=== PATIENT | male | born 1985 | race Caucasian/White ===

== ENCOUNTER 2016-04-18 04:48 | Emergency (ER) | payer MEDICAID ==
[~2016-04-18] VITALS: Ht 172.7 cm; Wt 87.0 kg
[~2016-04-18 04:48] MED LIST: ACET500T98
[2016-04-18 05:07] VITALS: Ht 172.7 cm; Wt 87.0 kg
[2016-04-18] MEDS ORDERED: ACETAMINOPHEN 500 MG TAB PO STA (06:21)
[2016-04-18] MEDS ORDERED: ONDANSETRON 4 MG INJ IV STA (06:21)
[2016-04-18] MEDS ORDERED: morphine 4 MG/ML VIAL IV STA (06:21)
--- NOTE | 2016-04-18 06:28 | ERD ---
ER Documentation Chief Complaint Date/Time DATE: 04/18/16 TIME: 06:26 Chief Complaint low back pain x 1 week, fever x days HPI 31-year-old male otherwise healthy comes in with right-sided flank, right mid abdominal pain that started a week ago followed by fever for the past 2 days. He points to his right mid abdomen and anterior portion stating that if he seemed to feel swollen. He states that the pain has gradually become worse, described as achy constant pain. He began noticing a fever for the past 2 days , he tried taking Naprosyn prior to coming in. He denies any fevers, chills, nausea, vomiting or diarrhea. Patient denies dysuria, urgency or frequency. ROS All systems reviewed and are negative except as per history of present illness. Medications Home Meds Active Scripts Metronidazole* (Flagyl*) 500 Mg Tablet, 500 MG PO TID for 7 Days, TAB Prov:DALLAS FRANCO PA-C 04/18/16 Ciprofloxacin Hcl* (Ciprofloxacin Hcl*) 500 Mg Tablet, 500 MG PO BID for 7 Days , TAB Prov:DALLAS FRANCO PA-C 04/18/16 Reported Medications Acetaminophen (Tylenol) 500 Mg Tab 03/25/10 Allergies Allergies: Coded Allergies: No Known Drug Allergies (Verified Allergy, Mild, 04/18/16) PMhx/Soc History of Surgery: No Anesthesia Reaction: No Hx Neurological Disorder: No Hx Respiratory Disorders: No Hx Cardiac Disorders: No Hx Psychiatric Problems: Yes (DEPRESSION) Hx Miscellaneous Medical Probl: No Hx Alcohol Use: No Hx Substance Use: No Hx Tobacco Use: No Physical Exam Vitals Vital Signs Date Time Temp Pulse Resp B/P Pulse Ox O2 Delivery O2 Flow Rate FiO2 04/18/16 05:07 100.5 91 20 112/66 97 Physical Exam General: Well-developed, well-nourished. The patient appears in no acute distress. HEENT: Head is normocephalic, atraumatic. No scleral icterus. Pupils are equal , round, and reactive. Oral mucous membranes are moist. No pharyngeal erythema. Neck: Supple. Nontender. Lungs: Clear to auscultation. Normal air movement. Heart: Regular rate and rhythm. S1 and S2 are normal. No murmurs, gallops, or rubs. Back: No midline tenderness, no rashes. No CVA tenderness. Abdomen: Soft, right mid abdomen on the lateral aspect is tender, no McBurney's tenderness negative Ayala sign, no masses or hepatosplenomegaly nondistended. Bowel sounds are normoactive. Extremities: No clubbing or cyanosis. Normal pulses. Moving extremities x 4. No weakness. Neurologic: Alert and oriented 3. No focal deficits. Skin: Normal turgor. No rash or lesions. Result Diagram: 04/18/16 0640 04/18/16 0640 Results 24 hrs Laboratory Tests Test 04/18/16 06:40 Alanine Aminotransferase (ALT/SGPT) 23IU/L Albumin 3.8g/dl Albumin/Globulin Ratio 1.35 Alkaline Phosphatase 70IU/L Anion Gap 16 Aspartate Amino Transf (AST/SGOT) 22IU/L Basophils # 0.010^3/ul Basophils % 0.4% Blood Urea Nitrogen 11mg/dl Calcium Level 8.9mg/dl Carbon Dioxide Level 26mmol/L Chloride Level 105mmol/L Creatinine 0.77mg/dl Direct Bilirubin 0.00mg/dl Eosinophils # 0.110^3/ul Eosinophils % 0.8% Globulin 2.80g/dl Glucose Level 100mg/dl Hematocrit 38.0% Hemoglobin 12.9g/dl Indirect Bilirubin 1.1mg/dl Lipase 49U/L Lymphocytes # 1.210^3/ul Lymphocytes % 12.0% Mean Corpuscular Hemoglobin 30.7pg Mean Corpuscular Hemoglobin Concent 33.9g/dl Mean Corpuscular Volume 90.5fl Mean Platelet Volume 10.4fl Monocytes # 1.210^3/ul Monocytes % 12.0% Neutrophils # 7.210^3/ul Neutrophils % 74.5% Nucleated Red Blood Cells # 0.010^3/ul Nucleated Red Blood Cells % 0.0/100WBC Platelet Count 46138^3/UL Potassium Level 4.1mmol/L Red Blood Count 4.2010^6/ul Red Cell Distribution Width 12.3% Sodium Level 143mmol/L Total Bilirubin 1.1mg/dl Total Protein 6.6g/dl Urine Bilirubin NEGATIVE Urine Clarity CLEAR Urine Color YELLOW Urine Glucose NEGATIVE% Urine Hemoglobin TRACE Urine Ketones NEGATIVE Urine Leukocyte Esterase NEGATIVE Urine Microscopic RBC 0-2/HPF Urine Microscopic WBC NONE SEEN/HPF Urine Nitrite NEGATIVE Urine Specific [place] >=1.030 Urine Squamous Epithelial Cells FEW Urine Total Protein TRACE Urine Urobilinogen 1.0 E.U./dL Urine pH 6.0 White Blood Count 9.710^3/ul Current Medications Medications (Trade) Dose Ordered Sig/Mandi Route PRN Reason Start Time Stop Time Status Last Admin Dose Admin Morphine Sulfate (morphine) 4 mg ONCE STAT IV 04/18/16 06:21 04/18/16 06:23 DC 04/18/16 06:55 Ondansetron HCl (Zofran Inj) 4 mg ONCE STAT IV 04/18/16 06:21 04/18/16 06:23 DC 04/18/16 06:55 Acetaminophen (Tylenol Tab) 500 mg ONCE STAT PO 04/18/16 06:21 04/18/16 06:23 DC 04/18/16 06:55 Iohexol 150 ml 150 ml STK-MED ONCE .ROUTE 04/18/16 07:23 04/18/16 07:24 DC Sodium Chloride (NS) 100 ml @ ud STK-MED ONCE .ROUTE 04/18/16 07:23 04/18/16 07:24 DC PROCEDURE: CT Abdomen and pelvis with contrast CLINICAL INDICATION: Right flank pain and fever TECHNIQUE: Spiral CT images through the abdomen and pelvis without administration of oral and during administration of 90 cc of Omnipaque-300 contrast material. Multiplanar reconstructions. The total exam CTDI equals 13.22 mGy and the total exam DLP equals 774.3 mGy-cm. One or more of the following dose reduction techniques were used: automated exposure control, adjustment of the mA and/or kV according to patient size, or use of iterative reconstruction technique. COMPARISON: None. FINDINGS: Slight atelectasis of the lung bases is seen. No pleural effusion is seen. . The aorta is normal in caliber. The liver, spleen, adrenals, kidneys, and pancreas are unremarkable in appearance.. The gallbladder does not appear distended. No biliary or pancreatic ductal dilatation is seen. No stones are seen in the kidneys, ureters, or bladder. No ascites is seen. There is no evidence for bowel obstruction or free air. Small fat-containing umbilical hernia. The appendix is normal in appearance. The prostate is unremarkable in appearance. There is wall thickening of the right aspect of the mid rectum irregularity in contour of the wall and probable small adjacent nodes. No definite focal drainable fluid collection or free air is seen. There is stranding of the adjacent presacral fat. No bony abnormality is seen. IMPRESSION: Wall thickening and irregularity of the mid rectum with adjacent inflammatory change of the perirectal fat and probable small adjacent nodes. This is more likely due to infectious proctitis than neoplastic etiology given the patient's age. No definite adjacent fluid collection to suggest perirectal abscess. No definite recent air to suggest perforation or definite fistula. Small fat-containing umbilical hernia. RPTAT: [facility] Alejandra Mayberry, Physician Date Time Electronically viewed and signed by Alejandra Mayberry, Physician on 04/18/2016 08 :43 LE/ Procedures/MDM ED course: Patient was given Tylenol 500 mg by mouth. IV line was established, patient was given morphine 4 mg, Zofran 4 mg IV, blood and urine were obtained. MDM: 31-year-old male comes in with right mid abdominal pain for a week followed by fever, CT abdomen pelvis does not show any evidence of right sided abdominal pain including hepatobiliary disease, kidney stone, pyelonephritis, kidney abscess, appendicitis. Workup was unremarkable, there is no leukocytosis or electrode abnormalities, urine was negative. There is evidence of inflammatory changes, suggestive of proctitis. Patient does have a fever and will be treated with antibiotics. He has been asked to follow-up with gastroenterology with colonoscopy once his symptoms resolved. Patient's pain on the right side is reproducible superficially, likely musculoskeletal. Departure Diagnosis: Primary Impression: Abdominal pain Condition: DALLAS York PA-C Apr 18, 2016 06:28
[2016-04-18 07:01] LABS: ADD UMIC YES; URINE BILIRUBIN (Dip) NEGATIVE (NEGATIVE); URINE BLOOD (Dip) TRACE (NEGATIVE); URINE COLOR YELLOW (YELLOW); URINE GLUCOSE (Dip) NEGATIVE (NEGATIVE); URINE KETONES (Dip) NEGATIVE (NEGATIVE); URINE LEUKOCYTE ESTERASE (Dip) NEGATIVE (NEGATIVE); URINE NITRITE (Dip) NEGATIVE (NEGATIVE); URINE TOTAL PROTEIN (Dip) TRACE (NEGATIVE); URINE UROBILINOGEN (Dip) 1.0 E.U./dL (0.1-1.0)
[2016-04-18 07:10] LABS: ADD SCAN DIFF NO; SQUAMOUS EPITHELIAL CELL,UR FEW; URINE RBCS 0-2 /HPF (0)
[2016-04-18 07:13] LABS: BASOPHILS % 0.4 % (0.0-2.0); EOSINOPHILS # 0.1 10^3/ul (0.0-0.5); EOSINOPHILS % 0.8 % (0.0-7.0); HEMOGLOBIN 12.9 g/dl (14.0-18.0); LYMPHOCYTES # 1.2 10^3/ul (0.8-2.9); MEAN CORPUSCULAR HEMOGLOBIN 30.7 pg (29.0-33.0); MEAN CORPUSCULAR HGB CONC 33.9 g/dl (32.0-37.0); MEAN CORPUSCULAR VOLUME 90.5 fl (82.0-101.0); MEAN PLATELET VOLUME 10.4 fl (7.4-10.4); MONOCYTE # 1.2 10^3/ul (0.3-0.9); NEUTROPHIL # 7.2 10^3/ul (1.6-7.5); NEUTROPHILS % 74.5 % (39.0-77.0); PLATELET COUNT 261 10^3/UL (140-415); RED CELL DISTRIBUTION WIDTH 12.3 % (11.5-14.5); WHITE BLOOD COUNT 9.7 10^3/ul (4.8-10.8)
[2016-04-18] MEDS ORDERED: IOHEXOL 300MG/ML 150 ML BTL ONE (07:23)
[2016-04-18] MEDS ORDERED: SOD CHLORIDE 0.9% 100 ML ONE (07:23)
[2016-04-18 07:30] LABS: ALBUMIN 3.8 g/dl (3.3-4.9)
[2016-04-18 07:31] LABS: POTASSIUM 4.1 mmol/L (3.5-5.1)
[2016-04-18 07:33] LABS: ALBUMIN/GLOBULIN RATIO 1.35; BILIRUBIN,INDIRECT 1.1 mg/dl (0-1.1); BILIRUBIN,TOTAL 1.1 mg/dl (0.2-1.3); CREATININE 0.77 mg/dl (0.61-1.24); TOTAL PROTEIN 6.6 g/dl (6.1-8.1)
[2016-04-18 07:34] LABS: CALCIUM 8.9 mg/dl (8.4-10.2)
--- NOTE | 2016-04-18 08:44 | RADRPT ---
PROCEDURE: CT Abdomen and pelvis with contrast CLINICAL INDICATION: Right flank pain and fever TECHNIQUE: Spiral CT images through the abdomen and pelvis without administration of oral and duri ng administration of 90 cc of Omnipaque-300 contrast material. Multiplanar reconstructions. The to higinio exam CTDI equals 13.22 mGy and the total exam DLP equals 774.3 mGy-cm. One or more of the follow ing dose reduction techniques were used: automated exposure control, adjustment of the mA and/or kV according to patient size, or use of iterative reconstruction technique. COMPARISON: None. FINDINGS: Slight atelectasis of the lung bases is seen. No pleural effusion is seen. . The aorta is normal in caliber. The liver, spleen, adrenals, kidneys, and pancreas are unremarkable in appearance.. The gallbladder does not appear distended. No biliary or pancreatic ductal dilatation is seen. No stones are seen in the kidneys, ureters, or bladder. No ascites is seen. There is no evidence for bowel obstruction or free air. Small fat-containing umbilical hernia. The appendix is normal in appearance. The prost ate is unremarkable in appearance. There is wall thickening of the right aspect of the mid rectum i rregularity in contour of the wall and probable small adjacent nodes. No definite focal drainable f luid collection or free air is seen. There is stranding of the adjacent presacral fat. No bony abn ormality is seen. IMPRESSION: Wall thickening and irregularity of the mid rectum with adjacent inflammatory change of the perirect al fat and probable small adjacent nodes. This is more likely due to infectious proctitis than neop lastic etiology given the patient's age. No definite adjacent fluid collection to suggest perirecta l abscess. No definite recent air to suggest perforation or definite fistula. Small fat-containing umbilical hernia. RPTAT: [facility] Physician Malini Date Time Electronically viewed and signed by Physician Malini on 04/18/2016 08:43 ERNESTO/
[2016-04-18] MEDS ORDERED: METR500T PO (09:09)
[2016-04-18] MEDS ORDERED: CIPR500T4 PO (09:09)
== END 2016-04-18 09:37 | disposition home or self-care (01) ==
LOC: FTE 04:48
DX: R10.9 Unspecified abdominal pain (principal)
CPT/HCPCS: 36415; 74177; 80053; 81001; 83690; 85025; 96374; 96375; J2270; J2405; Q9967; Z7502; Z7610; 81003